=== PATIENT | female | born 1940 | race Caucasian/White ===

== ENCOUNTER 2021-11-01 10:08 | Emergency (ER) | payer MEDICARE, OTHER ==
[2021-11-01] MEDS ORDERED: Albuterol/Ipratropium 3.0-0.5 MG/3 ML Neb Soln NEB STA (10:40)
[2021-11-01] MEDS ORDERED: methylPREDNISolone Sodium Succinate 125 MG/2 ML SDV IM STA (10:40)
[2021-11-01 11:20] LABS: BASE EXCESS VENOUS,POC 3 mmol/L (-2 - 3+); PCO2 VENOUS,POC 49 mmHg (41-51); PH VENOUS,POC 7.37 pH Units (7.32-7.43)
== END 2021-11-01 12:15 | disposition home or self-care (01) ==
LOC: FB.ED 10:08
DX: J44.1 Chronic obstructive pulmonary disease with (acute) exacerbation (principal); E78.00 Pure hypercholesterolemia, unspecified; N18.9 Chronic kidney disease, unspecified; E66.9 Obesity, unspecified; K21.9 Gastro-esophageal reflux disease without esophagitis; Z68.37 Body mass index [BMI] 37.0-37.9, adult; Z87.891 Personal history of nicotine dependence; Z79.899 Other long term (current) drug therapy
CPT/HCPCS: 36415; 71045; 80053; 83880; 84484; 85025; 93005; 93010; 94640; 96372; 99284; 99285-25; J2930; J7620-GY